=== PATIENT | male | born 1965 | race Caucasian/White ===

== ENCOUNTER 2020-04-10 11:02 | Emergency (ER) | payer BC ==
[~2020-04-10] VITALS: Ht 180.3 cm; Wt 84.8 kg
[~2020-04-10 11:02] MED LIST: NO HOME MEDS
[2020-04-10] MEDS ORDERED: meclizine 12.5mg tablet PO ONE ×2 (11:30→14:35)
[2020-04-10] MEDS ORDERED: normal saline 1000ml 1,000 ML IV ONE ×2 (11:30→15:50)
[2020-04-10 11:33] LABS: BASOPHILS % (AUTO) 0.2 % (0-1); EOSINOPHILS # (AUTO) 0.1 X10'3 (0-0.9); EOSINOPHILS % (AUTO) 0.9 % (0-6); HEMATOCRIT 50.8 % (42.0-52.0); HEMOGLOBIN 16.8 g/dl (14.0-17.9); LYMPHOCYTES # (AUTO) 0.9 X10'3 (1.1-4.8); LYMPHOCYTES % (AUTO) 11.2 % (21-51); MEAN CORPUSCULAR HEMOGLOBIN 30.6 PG (27.0-31.0); MEAN CORPUSCULAR HGB CONC 33.1 g/dL (33.0-36.5); MEAN CORPUSCULAR VOLUME 92.4 FL (78-98); MEAN PLATELET VOLUME 8.1 FL (7.4-10.4); MONOCYTES # (AUTO) 0.7 X10'3 (0-0.9); MONOCYTES % (AUTO) 9.4 % (2-12); NEUTROPHILS # (AUTO) 6.1 X10'3 (1.8-7.7); NEUTROPHILS % (AUTO) 78.3 % (42-75); PLATELET COUNT 201 X10'3 (140-440); RED CELL DISTRIBUTION WIDTH 13.9 % (11.5-14.5); WHITE BLOOD COUNT 7.8 X10'3 (4.5-11.0)
[2020-04-10 11:47] LABS: ALANINE AMINOTRANSFERASE 27 U/L (12-78); ALBUMIN 4.2 G/DL (3.4-5.0); ALBUMIN/GLOBULIN RATIO 1.2 (1.1-1.5); ALKALINE PHOSPHATASE 55 IU/L (46-116); ANION GAP 7 (8-16); ASPARTATE AMINO TRANSFERASE 15 U/L (10-37); BLOOD UREA NITROGEN 24 MG/DL (7-18); BUN/CREATININE RATIO 20.2 (5.4-32.0); CALCIUM 8.8 MG/DL (8.5-10.1); CHLORIDE 102 MMOL/L (99-107); CREATININE 1.19 MG/DL (0.60-1.10); GLUCOSE 108 MG/DL (70-104); LIPASE 102 U/L (73-393); POTASSIUM 3.7 MMOL/L (3.5-5.1); SODIUM 138 MMOL/L (135-145); TOTAL CARBON DIOXIDE 29.3 MMOL/L (24-32); TOTAL PROTEIN 7.8 G/DL (6.4-8.2); eGFR 64 ML/MIN
[2020-04-10] MEDS ORDERED: ondansetron/PF 4mg/2ml inj IV ONE (11:55)
--- NOTE | 2020-04-10 13:12 | NUR ---
Received call from Dr. Patel whom was the tele-[employer] sales consultant and was informed of recommendation for to have CTA of head and neck. recommended if CTA showed result of any spasms pt recommended to be transferred to higher level of care for neurology.
[2020-04-10] MEDS ORDERED: iohexol 350MG/ML 100ml bottle IV ONE (13:25)
[2020-04-10] MEDS ORDERED: acetaminophen 325mg tablet PO ONE (14:05)
[2020-04-10] MEDS ORDERED: proCHLORperazine 10 MG/2 ml inj IV ONE (14:05)
[2020-04-10] MEDS ORDERED: MECL-159 PO (17:09)
[2020-04-10] MEDS ORDERED: ONDA4TAB6 PO (17:09)
[2020-04-10 18:19] VITALS: BP 120/67
== END 2020-04-10 17:15 | disposition home or self-care (01) ==
LOC: ER 11:03
DX: I60.9 Nontraumatic subarachnoid hemorrhage, unspecified (principal); I72.8 Aneurysm of other specified arteries; R42 Dizziness and giddiness; M54.41 Lumbago with sciatica, right side; Z79.899 Other long term (current) drug therapy
CPT/HCPCS: 36415; 70450; 70496; 70498; 80053; 83690; 85025; 96361; 96374; 96375; 99285; J0780; J2405; J7030; J8597; Q9967; 93005